=== PATIENT | female | born 2005 | race Hispanic/Latino ===

== ENCOUNTER 2024-09-18 09:22 | Emergency (ER) | payer SELFPAY ==
[~2024-09-18] VITALS: Ht 172.7 cm; Wt 86.2 kg
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
[2024-09-18 10:52] VITALS: BP 115/71; PULSE 62; RESP 18; TEMP 98; O2SAT 99
== END 2024-09-18 11:00 | disposition home or self-care (01) ==
LOC: EDH 09:22
DX: T16.2XXA Foreign body in left ear, initial encounter (principal); W44.9XXA Unspecified foreign body entering into or through a natural orifice, initial encounter
CPT/HCPCS: 99281